=== PATIENT | female | born 1965 | race Caucasian/White ===

== ENCOUNTER 2022-06-07 15:14 | Emergency (ER) | payer SELFPAY ==
[~2022-06-07] VITALS: Ht 162.6 cm; Wt 77.1 kg
--- NOTE | 2022-06-07 15:14 | NUR ---
PT WALKING OUT OF ER, REQUESTING FOR ME TO CALL HER TO PICK HER UP. NILESH- [phone] CONTACTED AND INFORMED HIM THAT PT LEFT ER AND IS OUTSIDE WAITING FOR HIM TO PICK HER UP.
[2022-06-07 15:17] VITALS: BP 200/105
--- NOTE | 2022-06-07 15:19 | NUR ---
PATIENT LEFT WITHOUT BEING SEEN BY DR. CANTU . NO FURTHER CARE PROVIDED FOR PATIENT.
== END 2022-06-07 15:19 | disposition left against medical advice (07) ==
LOC: MED 15:14
DX: R00.0 Tachycardia, unspecified (principal); Z53.21 Procedure and treatment not carried out due to patient leaving prior to being seen by health care provider